=== PATIENT | female | born 1950 | race Caucasian/White ===

== ENCOUNTER 2020-11-02 13:22 | Emergency (ER) | payer MEDICARE, BC, SELFPAY ==
--- NOTE | ~2020-11-02 | XR_ITS ---
EXAMINATION: XR hip LT min 3V w AP pelvis EXAM DATE: 11/02/2020 13:39 INDICATION: No known recent injury provided at this time. Pain of the left hip. TECHNIQUE: Left hip frontal, 'frog leg' projections for interpretation. Frontal projection pelvis. There is no prior study for comparison. FINDINGS: There is mild to moderate symmetric bilateral hip primary osteoarthritis. There are no acut e fractures or dislocations identified. There is no subcutaneous gas. The soft tissue is unremarkabl e. There are no radiopaque foreign bodies. IMPRESSION: No acute osseous findings. Reviewed, dictated and finalized at location A. IMPRESSION: No acute osseous findings.
[2020-11-02 13:27] VITALS: BP 132/64; PULSE 82; RESP 18; TEMP 36.5; O2SAT 97
[2020-11-02] MEDS: KETOROLAC 15 MG/ML VIAL (*BKC) IV PUSH (14:31)
[2020-11-02] MEDS: diazePAM INJ (*CRX) 10 MG/2 ML SYRINGE 5 MG IV PUSH (14:34)
--- NOTE | 2020-11-02 14:59 | ED.BACK ---
HPI - Back Pain/Injury General Chief Complaint: Back Pain/Injury Stated Complaint: Back pain and hip pain Time Seen by Provider: 11/02/20 13:57 History of Present Illness HPI Narrative: Patient is a 70-year-old male who presents the ER with left hip and back pain. Patient reports she got out of bed yesterday and started having discomfort in her left buttock and start radiating down the left leg. She has increased pain when she walks or stands. Occasionally feels shooting going from her foot up to her hip. No known trauma or injury. Patient did have back surgery in May of this year and has had no issues since then. Denies saddle anesthesia or urinary retention/incontinence. Has not tried any pain medication. Pain is worse with any type of movement. Related Data Allergies Allergy/AdvReac Type Severity Reaction Status Date / Time latex Allergy Unknown Verified 08/08/15 14:25 Review of Systems Review of Systems: All systems reviewed & are unremarkable except as noted in HPI and below Constitutional: Constitutional: Denies chills and Denies fever(s) Musculoskeletal: Musculoskeletal: Reports back pain, Reports arthralgias and Denies joint swelling Neurologic: Denies focal weakness and Denies numbness PMFSH Past Medical History Medical History (Updated 11/02/20 @ 15:49 by Law Cee MD) History of breast cancer Migraines Surgical History Surgical History (Updated 11/02/20 @ 15:02 by Law Cee MD) History of appendectomy History of back surgery History of cholecystectomy History of mastectomy Left with reconstruction Family History Family History (Updated 08/08/15 @ 14:26 by DOCTOR UNKNOWN) Other Family history of malignant neoplasm Malignant neoplasm of prostate Social History Social History Smoking status: Never smoker Alcohol intake: never Gender identity (if verbalized by the patient): Female Exam Narrative: Exam Narrative: GENERAL: Well-appearing, morbidly obese, and in no acute distress. HEAD: Normocephalic, atraumatic. CHEST: Clear to auscultation. No respiratory distress. HEART: Regular rate and rhythm. Normal peripheral pulses. Back: Significant tenderness over the SI/gluteal region of the left buttock. No midline tenderness. EXTREMITIES: Increased pain left lower extremity with straight leg raise at the hip. Trace edema bilaterally. No tenderness or pain in the right lower extremity. Upper extremities with normal range of motion and strength. SKIN: Warm, dry, no rash. NEURO: No focal deficits. Alert and oriented x3. PSYCH: Normal mood and affect. Course Course Emergency Course: Patient reports pain went from 01/31-09/30 after receiving Toradol and Valium. She can move her leg much better at this time. Discussed return precautions and treatment plan and patient verbalized understanding. Vital Signs Vital signs: Vital Signs Temperature 97.7 F 11/02/20 13:27 Pulse Rate 82 11/02/20 13:27 Respiratory Rate 18 11/02/20 13:27 Blood Pressure 132/64 11/02/20 13:27 Pulse Oximetry 97 11/02/20 13:27 Temperature 97.7 F 11/02/20 13:27 Pulse Rate 82 11/02/20 13:27 Respiratory Rate 18 11/02/20 13:27 Blood Pressure 132/64 11/02/20 13:27 Pulse Oximetry 97 11/02/20 13:27 MDM - Back Pain/Injury Imaging Data Radiologist's impression: ITS Impressions Hip/Pelvis X-Ray 11/02/20 13:48 IMPRESSION: No acute osseous findings. Discharge Plan Discharge Clinical Impression: Sciatica Patient Disposition: Home, Self-Care Condition: Stable Instructions: Sciatica (ED) Additional Instructions: Return to the ER if you have increased pain in your back, you develop lower extremity weakness/numbness/paralysis, you have numbness or tingling in your private parts, or you are unable to control your ability to urinate/stool. Prescriptions: New cyclobenzaprine 10 mg tablet 10 mg PO TID PRN (Reason: muscle s
[2020-11-02 16:39] VITALS: BP 136/70; PULSE 78; RESP 18; O2SAT 97
== END 2020-11-02 16:40 | disposition home or self-care (01) ==
PROVIDERS: Emergency Provider Emergency Medicine; PCP Family Medicine
DX: M54.32 Sciatica, left side (principal); Z85.3 Personal history of malignant neoplasm of breast; Z90.12 Acquired absence of left breast and nipple
CPT/HCPCS: 73502; 96374; 96375; 99284; J1885; J3360

== ENCOUNTER 2021-02-07 03:04 | Day surgery (SDC) | payer MEDICARE, BC, SELFPAY ==
[2021-02-05 12:02] VITALS: BMI 41.5
--- NOTE | 2021-02-06 12:25 | PM.HPGS ---
History of Present Illness History of Present Illness Consent: Risks, benefits, and alternatives have been discussed and questions answered. Patient agrees to proceed with procedure. Chief complaint: GERD Narrative: Joann Ladd is a 71 year old female With persistent chest burning. Eating does not seem to affect it. Review of Systems Review of Systems: All systems reviewed & are unremarkable except as noted in HPI and below PMFSH Past Medical History Medical History History of breast cancer Migraines Surgical History Surgical History History of appendectomy History of back surgery History of cholecystectomy History of mastectomy Left with reconstruction Family History Family History Other Family history of malignant neoplasm Malignant neoplasm of prostate Social History Social History Smoking status: Never smoker Alcohol intake: never Substance use: never Substance use type: does not use Living arrangements: with family Gender identity (if verbalized by the patient): Female Spiritual care concerns: No Meds Home Medications and Allergies Home Medications Medication Instructions Recorded Confirmed Type cyclobenzaprine 10 mg PO TID PRN #20 tablet 11/02/20 Rx naproxen 500 mg PO BID #14 tablet 11/02/20 Rx Allergies Allergy/AdvReac Type Severity Reaction Status Date / Time latex Allergy Intermediate Hives Verified 02/07/21 08:51 Exam Const: General: alert Orientation/consciousness: patient oriented x3 Resp: Auscultation: clear to auscultation bilaterally Cardio: Rhythm: regular rhythm GI: GI Palp: Yes Soft to palpation and No Tenderness to palpation present (GI) Neuro: General: patient oriented x3 Assessment and Plan Assessment and plan (1) GERD (gastroesophageal reflux disease): Code(s): K21.9 - Gastro-esophageal reflux disease without esophagitis Status: Acute Assessment and Plan: EGD with possible biopsy or dilatation or cautery.
[2021-02-07 08:52] VITALS: BP 154/76; PULSE 70; RESP 18; TEMP 36.6; O2SAT 98; BMI 39.9
--- NOTE | 2021-02-07 09:20 | WPDANESEPPF ---
Anes - Initial Pre Proc Eval Procedure: Operation Date: 02/07/21 09:45 Proposed Procedures p Esophagogastroduodenoscopy - Cristian Shelby MD Date/Time: 02/07/21 09:20 Surgeon: Cristian Shelby MD Pre Op Diagnosis: GERD Patient Data Age: 71 Gender: F Height: 1.57 m Weight: 99 kg Last Vital Signs Temp 97.8 F 02/07/21 08:52 Pulse 70 02/07/21 08:52 Resp 18 02/07/21 08:52 BP 154/76 H 02/07/21 08:52 Pulse Ox 98 02/07/21 08:52 Allergies Allergy/AdvReac Type Severity Reaction Status Date / Time latex Allergy Intermediate Hives Verified 02/07/21 08:51 Home Medications Medication Instructions Recorded Confirmed Type cyclobenzaprine 10 mg PO TID PRN #20 tablet 11/02/20 Rx naproxen 500 mg PO BID #14 tablet 11/02/20 Rx Patient hx anesthesia problems: none Family hx anesthesia problems: none PMFSH Past Medical History Medical History History of breast cancer Migraines Surgical History Surgical History History of appendectomy History of back surgery History of cholecystectomy History of mastectomy Left with reconstruction Family History Family History Other Family history of malignant neoplasm Malignant neoplasm of prostate Social History Social History Smoking status: Never smoker Alcohol intake: never Substance use: never Substance use type: does not use Living arrangements: with family Gender identity (if verbalized by the patient): Female Spiritual care concerns: No Anes - Eval Final PreProcedure Day of Procedure 02/07/21 09:20 Patient weight: morbidly obese Heart: regular rate and rhythm Lungs: clear to auscultation Airway: Mallampati scale Last oral intake: >/= 8 hours ASA classification: III Emergent: no Anesthetic plan: proceed Anesthesia type and monitoring: general GIVS and standard monitoring Informed Consent: The patient's anesthetic plan and its attendant risks and benefits were discussed with the patient/family/POA. Questions were solicited and answers provided to the satisfaction of the patient/family/POA.
[2021-02-07] MEDS: LACTATED RINGERS 1,000 ML 150 ML IV CONT (09:30)
[2021-02-07 09:52] VITALS: BP 105/47; PULSE 60; RESP 23; O2SAT 98
[2021-02-07 10:02] VITALS: BP 116/57; PULSE 60; RESP 20; O2SAT 99
[2021-02-07 10:12] VITALS: BP 109/79; PULSE 63; RESP 17; O2SAT 99
== END 2021-02-07 10:33 | disposition home or self-care (01) ==
PROVIDERS: PCP Family Medicine; Visit Provider Internal Medicine Gastroenterology
PROC: 0DJ08ZZ Inspection of Upper Intestinal Tract, Via Natural or Artificial Opening Endoscopic (ICD-10-PCS; CPT 43235; principal; 2021-02-07 09:45)
DX: K21.00 Gastro-esophageal reflux disease with esophagitis, without bleeding (principal); K29.70 Gastritis, unspecified, without bleeding; K22.70 Barrett's esophagus without dysplasia; Z85.3 Personal history of malignant neoplasm of breast; E66.01 Morbid (severe) obesity due to excess calories; Z68.39 Body mass index [BMI] 39.0-39.9, adult
CPT/HCPCS: 43239; 87081; 88305; J2704; J7120

== ENCOUNTER 2021-07-31 13:21 | Outpatient (CLI) | payer MEDICARE, BC, SELFPAY ==
--- NOTE | ~2021-07-31 | CT_ITS ---
EXAMINATION: CT abdomen pelvis w con EXAM DATE: 07/31/2021 14:19 INDICATION: Diverticulitis. Right upper quadrant and right lower quadrant abdominal pain. TECHNIQUE: Spiral CT of the abdomen and pelvis was performed following intravenous injection of 100 m L Omnipaque 350. Axial, coronal and sagittal images of the abdomen and pelvis were reviewed. The do se-length product (DLP) for this examination was 1231.05 mGy-cm. The exposure was tailored according to patient size (auto mA exposure control), and iterative reconstruction (ASIR) was used as addition al dose reduction technique. Comparison is made to prior examination from 05/05/2017. FINDINGS: The liver, spleen, adrenal glands and pancreas are unremarkable. There are cholecystectomy clips. Portal and splenic veins are patent. Punctate right inferior calyceal stone. Kidneys enhance symmetrically. There is no hydronephrosis. The uterus is unremarkable. The bladder is unremarka ble. There is no retroperitoneal or pelvic lymphadenopathy. Small umbilical fat-containing hernia. Small to moderate left inguinal fat-containing hernia. The appendix is not positively visualized. There is no pericecal inflammatory change to suggest appe ndicitis. There is moderate scattered colonic diverticulosis. There is no adjacent inflammatory barreto ge to suggest diverticulitis. The stomach and small bowel are unremarkable. There is expected amount of colonic stool. No free intraperitoneal gas. The heart is normal in size. There are no perica rdial or pleural effusions. The lung bases are unremarkable. Lumbar laminotomies and laminectomies. There are no osteoblastic or osteolytic lesions identified. IMPRESSION: 1. No acute intra-abdominal findings. 2. Moderate colonic diverticulosis. 3. Punctate right nephrolithiasis. Reviewed, dictated and finalized at location A. DEVELOPER
[2021-07-31 13:57] LABS: Estimated Glomerular Filt Rate > 60
== END 2021-07-31 13:22 | disposition home or self-care (01) ==
PROVIDERS: PCP Family Medicine; Visit Provider Physician Assistant
DX: K57.92 Diverticulitis of intestine, part unspecified, without perforation or abscess without bleeding (principal); N20.0 Calculus of kidney
CPT/HCPCS: 74177; Q9967

== ENCOUNTER 2021-08-06 09:47 | Outpatient (CLI) | payer MEDICARE, BC, SELFPAY ==
[2021-08-06 10:28] LABS: Basophils Absolute Auto 0.1 K/mm3 (0.0-0.1); Basophils Percent Auto 1.9 % (0.2-1.2); Eosinophils Absolute Auto 0.4 K/mm3 (0-0.3); Eosinophils Percent Auto 6.9 % (0-4.4); Hemoglobin 13.7 g/dL (12.0-15.0); Immature Granulocyte Absolute 0.01 K/mm3 (0.00-0.031); Immature Granulocyte Percent A 0.2 % (0-0.5); Immature Platelet Fraction Pct 29.3 % (0.9-11.2); Lymphocytes Absolute Auto 2.54 K/mm3 (0.9-3.2); Lymphocytes Percent Auto 47.3 % (18.3-44.2); Mean Corpuscular HGB Conc 33.4 g/dl (32-36); Mean Corpuscular Hemoglobin 32.3 pg (26-34); Mean Corpuscular Volume 96.7 fl (80-100); Mean Platelet Volume 14.9 fl (7.4-10.4); Monocytes Absolute Auto 0.6 K/mm3 (0.1-0.6); Monocytes Percent Auto 11.5 % (2.6-8.5); Neutrophils Absolute Auto 1.7 K/mm3 (1.3-6.7); Neutrophils Percent Auto 32.2 % (45.5-73.1); Platelet Count Result 210 k/mm3 (150-375); Red Blood Count 4.24 M/mm3 (4.2-5.4); Red Cell Distribution Width 15.8 % (11.5-14.5); White Blood Count 5.4 K/mm3 (4.5-10.0)
[2021-08-06 10:31] LABS: Add Urine Microscopic? YES; Appearance Urine Cloudy (Clear); Bilirubin Urine Negative (Negative); Blood Urine 1+ (Negative); Color Urine Yellow (Yellow); Glucose Urine UA Negative (Negative); Ketones Urine Negative (Negative); Leukocyte Esterase Ur 2+ LEU/UL (NEGATIVE); Mucus Urine Rare /lpf; Nitrate Urine Negative (Negative); Protein Urine Negative (Negative); Specific Grav Ur 1.015 (1.001-1.035); Squamous Epithelial Cell Urine Rare /hpf (Few); Urobilinogen Urine Negative mg/dL (<2.0); WBC Urine 21-30 /hpf (0-3)
[2021-08-06 10:37] LABS: Alanine Aminotransferase 59 U/L (4-35); Albumin Level 4.5 g/dL (3.5-5.1); Alkaline Phosphatase 102 U/L (38-126); Anion Gap 7 mmol/L (8-16); Aspartate Amino Transferase 75 U/L (14-36); Bilirubin,Total 0.5 mg/dL (0.2-1.3); Blood Urea Nitrogen 15 mg/dL (7-17); Calcium 9.6 mg/dL (8.4-10.2); Carbon Dioxide 26 mmol/L (22-30); Chloride 105 mmol/L (98-107); Estimated Glomerular Filt Rate > 60; Glucose 125 mg/dL (65-110); Potassium 4.3 mmol/L (3.4-5.0); Sodium 138 mmol/L (137-145)
[2021-08-06 11:10] LABS: Free T4 Free Thyroxine 1.32 ng/mL (0.78-2.19)
== END 2021-08-06 09:48 | disposition home or self-care (01) ==
LOC: ANHLAB 09:54
PROVIDERS: PCP Family Medicine; Visit Provider Family Medicine
DX: K57.92 Diverticulitis of intestine, part unspecified, without perforation or abscess without bleeding (principal); R61 Generalized hyperhidrosis
CPT/HCPCS: 36415; 80053; 81001; 84439; 84443; 85025; 85055

== ENCOUNTER 2021-10-09 16:34 | Outpatient (CLI) | payer MEDICARE, BC, SELFPAY ==
--- NOTE | ~2021-10-09 | MR_ITS ---
EXAMINATION: MR brain/brain stem wo con DATE: 10/09/2021 17:15 INDICATION: Headache, unspecified. TECHNIQUE: Magnetic resonance imaging (MRI) of the brain and brainstem was performed without intraven ous contrast. COMPARISON: None. FINDINGS: There are scattered areas of nonspecific increased T2-weighted signal intensity in the cere bral white matter, which is within normal limits for the patient's age. There is no intracranial hemo rrhage, acute infarction, or abnormal intracranial mass lesion. The ventricles are normal in size. Th ere is mild mucosal thickening in the paranasal sinuses. The orbits are normal. The mastoid air cells are normal. IMPRESSION: 1. Normal aging brain. Reviewed, dictated and finalized at location A. IMPRESSION: 1. Normal aging brain.
== END 2021-10-09 16:35 | disposition home or self-care (01) ==
PROVIDERS: PCP Family Medicine; Visit Provider Family Medicine
DX: R51.9 Headache, unspecified (principal)
CPT/HCPCS: 70551

== ENCOUNTER 2022-02-04 14:33 | Outpatient (CLI) | payer MEDICARE, BC, SELFPAY | END 2022-02-04 14:34 | disposition home or self-care (01) | PROVIDERS: PCP Family Medicine; Referring Provider Obstetrics & Gynecology Gynecology; Visit Provider Obstetrics & Gynecology Gynecology | DX: E55.9 Vitamin D deficiency, unspecified (principal) | CPT/HCPCS: 36415; 82306 ==

== ENCOUNTER 2022-02-24 13:45 | Emergency (ER) | payer MEDICARE, BC, SELFPAY ==
--- NOTE | ~2022-02-24 | XR_ITS ---
XR chest 2V 02/24/2022 15:09 Indication: Chest pain and shortness of breath. Cough. Procedure: 2 view chest Comparison: Comparison to multiple prior studies sequentially, with oldest reviewed study dated 10/10/2007. Findings: Heart size normal. No focal air space disease, pulmonary edema, pleural effusion or suspect ed pneumothorax. Surgical clips are present in the left axilla. Impression: 1: No acute cardiopulmonary disease. Reviewed, dictated and finalized at location A. Impression: 1: No acute cardiopulmonary disease.
--- NOTE | ~2022-02-24 | CT_ITS ---
EXAMINATION: CT diagnostic chest w con DATE: 02/24/2022 18:15 INDICATION: Chest pain, history of breast cancer TECHNIQUE: Computed tomography (CT) of the chest was performed with 100 mL Omnipaque-350 intravenous contrast. Automated exposure control and iterative reconstruction technique were employed. The dose-l ength product was 329.28 mGy-cm. COMPARISON: None. FINDINGS: CHEST: Thoracic aorta: Mild arch calcifications. Lung parenchyma and airways: Lungs and airways are clear. Thoracic inlet, axillae and chest wall: Left axillary surgical clips. Left breast implant. Left thyro idectomy. 1.2 cm hypodense right thyroid nodule which requires no additional workup. No soft tissue m ass or lymphadenopathy. Mediastinum: No mass or lymphadenopathy. Small hiatal hernia. Heart and pericardium: Mild cardiomegaly. Coronary artery calcifications: Absent. Pleura: No effusion or mass. Upper abdomen: No significant finding. Thoracic bones: No acute osseous finding in the chest. IMPRESSION: No acute thoracic process detected. Reviewed, dictated and finalized at location K.
[2022-02-24 13:48] VITALS: BP 144/99; PULSE 73; RESP 16; TEMP 36.6; O2SAT 99
--- NOTE | 2022-02-24 13:51 | ECG_ITS ---
Measurements Intervals [place] Rate: 69 P: 53 TN: 133 QRS: -5 QRSD: 91 T: 33 QT: 330 QTc: 356 Interpretive Statements SINUS RHYTHM MINIMAL VOLTAGE CRITERIA FOR LVH, CONSIDER NORMAL VARIANT NONSPECIFIC T-WAVE ABNORMALITY BORDERLINE ECG NO PREVIOUS ECG AVAILABLE FOR COMPARISON Electronically Signed On 02-24-2022 17:14:02 CDT by Lobo Walker M.D.
[2022-02-24 14:11] LABS: Basophils Absolute Auto 0.1 K/mm3 (0.0-0.1); Basophils Percent Auto 2.2 % (0.2-1.2); Eosinophils Absolute Auto 0.4 K/mm3 (0-0.3); Eosinophils Percent Auto 6.5 % (0-4.4); Hematocrit 40.1 % (37.0-47.0); Hemoglobin 12.9 g/dL (12.0-15.0); Immature Granulocyte Absolute 0.01 K/mm3 (0.00-0.031); Immature Granulocyte Percent A 0.2 % (0-0.5); Immature Platelet Fraction Pct 32.3 % (0.9-11.2); Lymphocytes Absolute Auto 2.16 K/mm3 (0.9-3.2); Lymphocytes Percent Auto 38.9 % (18.3-44.2); Mean Corpuscular HGB Conc 32.2 g/dl (32-36); Mean Corpuscular Hemoglobin 33.2 pg (26-34); Mean Corpuscular Volume 103.1 fl (80-100); Monocytes Absolute Auto 0.6 K/mm3 (0.1-0.6); Monocytes Percent Auto 10.1 % (2.6-8.5); Neutrophils Absolute Auto 2.3 K/mm3 (1.3-6.7); Neutrophils Percent Auto 42.1 % (45.5-73.1); Platelet Count Result 273 k/mm3 (150-375); Red Blood Count 3.89 M/mm3 (4.2-5.4); Red Cell Distribution Width 16.8 % (11.5-14.5); White Blood Count 5.6 K/mm3 (4.5-10.0)
[2022-02-24 14:18] LABS: INR 1.2; Partial Thromboplastin Time 31.3 SECONDS (22.3-36.8); Prothrombin Time 14.3 Seconds (11.1-14.7)
[2022-02-24 14:19] LABS: Alanine Aminotransferase 39 U/L (6-35); Albumin Level 4.5 g/dL (3.5-5.1); Alkaline Phosphatase 128 U/L (38-126); Anion Gap 13 mmol/L (8-16); Aspartate Amino Transferase 36 U/L (14-36); Bilirubin,Total 0.6 mg/dL (0.2-1.3); Blood Urea Nitrogen 17 mg/dL (7-17); Calcium 9.6 mg/dL (8.4-10.2); Carbon Dioxide 24 mmol/L (22-30); Chloride 105 mmol/L (98-107); Estimated CRCL calculation 64 ml/min; Estimated Glomerular Filt Rate > 60; Glucose 147 mg/dL (65-110); Lipase 77 U/L (23-300); Potassium 3.8 mmol/L (3.4-5.0); Sodium 142 mmol/L (137-145)
[2022-02-24 14:28] LABS: Troponin I < 0.012 ng/mL (0.000-0.034)
[2022-02-24 16:07] LABS: Appearance Urine Clear (Clear); Bilirubin Urine Negative (Negative); Blood Urine Negative (Negative); Color Urine Yellow (Yellow); Glucose Urine UA Negative (Negative); Ketones Urine Negative (Negative); Leukocyte Esterase Ur Trace LEU/UL (Negative); Nitrate Urine Negative (Negative); Protein Urine Negative (Negative); pH Urine 5.5 (5.0-9.0)
[2022-02-24 16:19] LABS: Mucus Urine Rare /lpf; RBC Urine 0-2 /hpf (0-2); Squamous Epithelial Cell Urine Rare /hpf (Few); WBC Urine 0-3 /hpf
[2022-02-24 16:20] LABS: Add Urine Microscopic? YES
--- NOTE | 2022-02-24 16:57 | ED.CHESTPAIN ---
HPI - Chest Pain General Chief Complaint: Chest Pain Stated Complaint: chest pain with chills since Wednesday - SOB Time Seen by Provider: 02/24/22 16:19 History of Present Illness HPI narrative: This is a 72-year-old female with past medical history of breast cancer and hypertension, who presents to the emergency department complaining of chest pain since Wednesday. She states the pain occurred gradually has been gradually worsening is associated with cough and aggravated by deep breathing. She states the pain is 7 out of 10, pressure-like and does not radiate. She denies loss of consciousness, palpitations, weakness/numbness in any extremity. She also complains of intermittent chills and subjective fevers. Related Data Home Medications Medication Instructions Recorded Confirmed clonidine HCl 0.1 mg tablet 0.1 mg PO BID 04/08/21 04/08/21 gabapentin 300 mg capsule 300 mg PO BID 04/08/21 04/08/21 letrozole 2.5 mg tablet 2.5 mg PO DAILY 04/08/21 04/08/21 rizatriptan 10 mg tablet (Maxalt) 10 mg PO ONCE 04/08/21 04/08/21 venlafaxine 50 mg tablet 50 mg PO DAILY 04/08/21 04/08/21 Allergies Allergy/AdvReac Type Severity Reaction Status Date / Time latex Allergy Intermediate Hives Verified 02/24/22 13:46 Review of Systems Review of Systems: CONSTITUTIONAL: fever, chills, or sweats. EYES: Denies visual changes, redness, or discharge. ENT: Denies rhinorrhea, congestion, sore throat, or otalgia. CARDIOVASCULAR: chest pain Denies, palpitations, or edema. RESPIRATORY: Denies cough or dyspnea. GASTROINTESTINAL: Denies abdominal pain, nausea, vomiting, or diarrhea. GENITOURINARY: Denies dysuria or hematuria. SKIN: Denies rash or itching. MUSCULOSKELETAL: Denies back pain, joint pain, or myalgia. NEUROLOGIC: Denies headache, numbness, dizziness, or weakness. PSYCHIATRIC: Denies anxiety or depression. [facility] Past Medical History Medical History History of breast cancer Migraines Surgical History Surgical History History of appendectomy History of back surgery History of cholecystectomy History of mastectomy Left with reconstruction Family History Family History Other Family history of malignant neoplasm Malignant neoplasm of prostate Social History Social History Smoking status: Never smoker Alcohol intake: never Substance use: never Substance use type: does not use Gender identity (if verbalized by the patient): Female Spiritual care concerns: No Exam Narrative: GENERAL: Well-developed, well-nourished, appears uncomfortable HEAD: Normocephalic, atraumatic. EYES: PERRLA and EOMI. ENT: Nares clear, no rhinorrhea or epistaxis. Mucous membranes moist. Oropharynx without tonsillar hypertrophy exudate or other lesions. NECK: Supple. No adenopathy or masses. No carotid bruits or JVD CHEST: Clear to auscultation. No respiratory distress. No wheezes rales or rhonchi, reproducible tenderness to palpation over midline anterior chest HEART: Regular rate and rhythm. No murmur heard. Normal peripheral pulses. ABDOMEN: Soft, nontender, nondistended, normal active bowel sounds. EXTREMITIES: Normal range of motion. No edema. SKIN: Warm, dry, no rash. NEURO: No focal deficits. Alert and oriented x3. PSYCH: Normal mood and affect. Course Course Emergency Course: 18:38 - Labs are nonconcerning for acute metabolic abnormality. CBC within normal limits and UA not concerning for UTI. CT chest not concerning for acute cardiopulmonary process or changes concerning for metastatic disease. HEART score 3. Reassessed patient. She states she feels improved. Suspect patient's symptoms are related to viral illness with costochondritis. Discussed medications for pain control and return precautions includ
[2022-02-24 17:53] VITALS: BP 163/86; PULSE 94; RESP 13; O2SAT 98
[2022-02-24 18:03] LABS: SARS-CoV-2 RNA PCR Negative
[2022-02-24 18:09] LABS: Troponin I < 0.012 ng/mL (0.000-0.034)
[2022-02-24] MEDS: MORPHINE SULFATE (*CRX) 4 MG/ML INJ IV PUSH (18:21)
[2022-02-24 19:30] VITALS: BP 144/81; PULSE 97; RESP 17; O2SAT 99
== END 2022-02-24 19:32 | disposition home or self-care (01) ==
PROVIDERS: Emergency Medicine; Emergency Provider Preventive Medicine Aerospace Medicine; PCP Family Medicine
DX: M94.0 Chondrocostal junction syndrome [Tietze] (principal); R07.89 Other chest pain; I10 Essential (primary) hypertension; Z85.3 Personal history of malignant neoplasm of breast; Z20.822 Contact with and (suspected) exposure to COVID-19
CPT/HCPCS: 36415; 71046; 71260; 80053; 81001; 83690; 84484; 85025; 85055; 85610; 85730; 93005; 96374; 96375; 99284; C9803; J0131; J2270; Q9967; U0003; U0005

== ENCOUNTER 2022-04-15 10:05 | Outpatient (RCR) | payer MEDICARE, BC, SELFPAY ==
--- NOTE | 2022-04-15 13:25 | PTOPEVAL1 ---
Assessment and note entered by Ingris Saucedo, PT Evaluation Information Assessment Status Evaluation Diagnosis lumbar pain Onset September 2021 Subjective Information history of back surgery about 1 year ago; had gradual increase in back pain, without any injury to back; had back MRI recently and dr told her she would need more surgery--have more bulging discs; had 3 injections in back, most recent about 3 weeks ago- they helped; continuing with pain management care; Reported Pain Level Pain Score Self Report Additional Pain Score Comments pain range 1-9/10; stabbing pain in back, needle sticking in back, into R leg- lateral and posterior thigh to above knee; increase pain with twisting back, in/out car; reported tolerances: walking 10-15 min; sitting 1 hour; with sleeping, pain awakens 2x/night; decrease pain with aleve, heat/ice; at home, doing light housework only, requires multiple rests with home tasks; Assessment PT Clinical Summary Benedict has the diagnosis of lumbar radiculitis, foraminal stenosis. Pain is into her R LE to above the knee. She reports decreased walking, sitting and sleeping tolerances, with self assessment Oswestry score of 66% limitation in activity level. Pain is increased with home activity and getting in/out of car. She has had pain injections, which have helped to decrease her pain. With the evaluation, she has increased pain with standing trunk motions, supine B hip IR and ER motions, with tightness of her hamstrings and decreased strength of her trunk and hips. She has poor standing posture, with trunk and hip rotation and curvature of her spine. With the 2 minute walking test, she ambulated 150' and required 2 standing rest breaks. Skilled PT services are indicated for modalities to decrease pain, therapeutic exercises on land and in the water, for buoyancy effects of the water, to allow ease of motion and education for home exercises and self management of pain. Plan of Care Interventions Aquatic Therapy,Gait Training,Manual Therapy, Mechanical Traction,Neuro Re-education,Patient/ Caregiver Education,Therapeutic Activities,
--- NOTE | 2022-04-27 09:42 | PCPTNOTE ---
Patient called & cancelled all of her scheduled appointment this date.
--- NOTE | 2022-06-02 11:26 | PCPTNOTE ---
PHYSICAL THERAPY DISCHARGE 06-02-22 Attending Provider: Gt Domingo MD Patient:Joann Ladd Date of :1950 Patient has not returned for any further treatments since the PT evaluation on 04/15/2022, for the diagnosis of low back pain. Therefore she will be discharged at this time. The goals were not assessed. Thank you for referring this patient to [facility].
== END 2022-06-02 14:54 | disposition home or self-care (01) ==
LOC: ANHPT 10:05
PROVIDERS: PCP Family Medicine
DX: M51.26 Other intervertebral disc displacement, lumbar region (principal); M48.061 Spinal stenosis, lumbar region without neurogenic claudication; M54.16 Radiculopathy, lumbar region
CPT/HCPCS: 97110; 97161

== ENCOUNTER 2023-01-13 01:39 | Day surgery (SDC) | payer MEDICARE, BC, SELFPAY ==
[2023-01-11 12:01] VITALS: BMI 42.5
--- NOTE | 2023-01-12 13:47 | WPDANESEPPF ---
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 Patient Data Age: 72 Gender: F Height: 1.57 m Weight: 105.5 kg Allergies Allergy/AdvReac Type Severity Reaction Status Date / Time latex Allergy Severe Hives Verified 01/13/23 13:02 wool Allergy Severe Hives Verified 01/13/23 13:02 Home Medications Medication Instructions Recorded Confirmed Type pantoprazole 40 mg tablet,delayed 40 mg PO QAM 3 months #90 tabs 03/10/21 01/11/23 Rx release acetaminophen 500 mg tablet 500 mg PO Q8H PRN fever or pain 02/24/22 01/11/23 Rx #60 tabs atorvastatin 10 mg tablet 10 mg PO DAILY 11/10/22 01/11/23 History diclofenac sodium 75 mg 75 mg PO BID 11/10/22 01/11/23 History tablet,delayed release lidocaine 5 % topical patch 1 patch topical DAILY PRN Pain 11/10/22 01/11/23 History oxycodone-acetaminophen 10 mg-325 1 tablet PO Q8H PRN Pain 11/10/22 01/11/23 History mg tablet rimegepant 75 mg disintegrating 75 mg PO ONCE PRN Migraine Headache 11/10/22 01/11/23 History tablet rivaroxaban 20 mg tablet 20 mg PO DAILY 11/10/22 01/11/23 History sumatriptan succinate 50 mg tablet See Rx Instructions PO .COMPLEX 11/10/22 01/11/23 History PRN Migraine Headache tizanidine 4 mg capsule 4 mg PO QHS PRN Insomnia 11/10/22 01/11/23 History calcium carbonate-vitamin D3 1 cap PO DAILY 01/11/23 01/11/23 History duloxetine 30 mg capsule,delayed 30 mg PO DAILY 01/11/23 01/11/23 History release ergocalciferol (vitamin D2) 1,250 50,000 unit PO [id number] 01/11/23 01/11/23 History mcg (50,000 unit) capsule ferrous sulfate 140 mg (45 mg 140 mg PO DAILY 01/11/23 01/11/23 History iron) tablet,extended release metoprolol tartrate 25 mg tablet 25 mg PO BID 01/11/23 01/11/23 History pregabalin 100 mg capsule 100 mg PO TID 01/11/23 01/11/23 History zolpidem 10 mg tablet 10 mg PO HS PRN Insomnia 01/11/23 01/11/23 History Patient hx anesthesia problems: none Family hx anesthesia problems: none Results Review: All pre-operative results and documents have been reviewed as part of the pre-operative evaluation. [facility] Past Medical History Medical History (Updated 01/12/23 @ 13:49 by Suraj Valladares DO) Atrial fibrillation History of breast cancer Hyperlipidemia Hypertension Migraines Surgical History Surgical History (Updated 01/12/23 @ 13:49 by Suraj Valladares DO) History of appendectomy History of back surgery History of cholecystectomy History of mastectomy Left with reconstruction History of tubal ligation Family History Family History Other Family history of malignant neoplasm Malignant neoplasm of prostate Social History Social History Smoking status: Never smoker Alcohol intake: current Substance use: current Substance use type: does not use Living arrangements: with family Gender identity (if verbalized by the patient): Female Spiritual care concerns: No Anes - Eval Final PreProcedure Day of Procedure 01/12/23 13:47 Patient weight: morbidly obese Heart: regular rate and rhythm Lungs: clear to auscultation Airway: Mallampati scale class II Neurological: alert and oriented Last oral intake: >/= 8 hours ASA classification: III Emergent: no Anesthetic plan: proceed Anesthesia type and monitoring: general GIVS and standard monitoring Results Review: All pre-operative results and documents have been reviewed as part of the pre-operative evaluation. Informed Consent: The patient's anesthetic plan and its attendant risks and benefits were discussed with the patient/family/POA. Questions were solicited and answers provided to the satisfaction of the patient
--- NOTE | 2023-01-12 14:25 | PM.HPGS ---
History of Present Illness History of Present Illness Consent: Risks, benefits, and alternatives have been discussed and questions answered. Patient agrees to proceed with procedure. Chief complaint: melena,Garrido?s Esophagus Narrative: Joann Ladd is a 72 year old female who had seen blood in her stools last month.? At that time she was taking an antibiotic which was a red pill and so at the time she thought that the red color in the toilet was from that pill.? She had not recognized that was probably blood.? She saw her primary care provider who did a stool Hemoccult which was positive.? 7 years ago she had colonoscopy with removal of 1 small tubular adenoma. Also she had blood work done that showed that her blood counts had dropped.? We do not have those at present but are requesting them from the laboratory who performed them. 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 She states that her? health otherwise is okay.? Her weight is stable.? She has lost about 7 lb but was trying to.? She does have Barretts esophagus and she states she received a letter from her insurance company that she is approved to have that endoscopic procedure through the next year.? She states that she only took pantoprazole for short while not knowing that she was supposed to stay on it but has restarted just recently.? She denies dysphagia.? She was not having a great deal of heartburn while off the medication. Review of Systems Review of Systems: All systems reviewed & are unremarkable except as noted in HPI and below PMFSH Past Medical History Medical History (Updated 01/12/23 @ 13:49 by Suraj Valladares DO) Atrial fibrillation History of breast cancer Hyperlipidemia Hypertension Migraines Surgical History Surgical History (Updated 01/12/23 @ 13:49 by Suraj Valladares DO) History of appendectomy History of back surgery History of cholecystectomy History of mastectomy Left with reconstruction History of tubal ligation Family History Family History Other Family history of malignant neoplasm Malignant neoplasm of prostate Social History Social History Smoking status: Never smoker Alcohol intake: current Substance use: current Substance use type: does not use Living arrangements: with family Gender identity (if verbalized by the patient): Female Spiritual care concerns: No Meds Home Medications and Allergies Home Medications Medication Instructions Recorded Confirmed Type pantoprazole 40 mg tablet,delayed 40 mg PO QAM 3 months #90 tabs 03/10/21 01/11/23 Rx release acetaminophen 500 mg tablet 500 mg PO Q8H PRN fever or pain 02/24/22 01/11/23 Rx #60 tabs atorvastatin 10 mg tablet 10 mg PO DAILY 11/10/22 01/11/23 History diclofenac sodium 75 mg 75 mg PO BID 11/10/22 01/11/23 History tablet,delayed release lidocaine 5 % topical patch 1 patch topical DAILY PRN Pain 11/10/22 01/11/23 History oxycodone-acetaminophen 10 mg-325 1 tablet PO Q8H PRN Pain 11/10/22 01/11/23 History mg tablet rimegepant 75 mg disintegrating 75 mg PO ONCE PRN Migraine Headache 11/10/22 01/11/23 History tablet rivaroxaban 20 mg tablet 20 mg PO DAILY 11/10/22 01/11/23 History sumatriptan succinate 50 mg tablet See Rx Instructions PO .COMPLEX 11/10/22 01/11/23 History PRN Migraine Headache tizanidine 4 mg capsule 4 mg PO QHS PRN Insomnia 11/10/22 01/11/23 History calcium carbonate-vitamin D3 1 cap PO DAILY 01/11/23 01/11/23 History duloxetine 30 mg capsule,delayed 30 mg PO DAILY 01/11/23 01/11/23 History release ergocalciferol (vitamin D2) 1,250 50,000 unit PO [id number] 01/11/23 01/11/23 History mcg (50,000 unit) capsule ferrous sulfate 140 mg (45 mg 140 mg PO DAILY 01/11/23 01/11/23 History iron) tablet,extended release metoprolol tartrate 25 mg t
[2023-01-13 13:06] VITALS: BP 129/57; PULSE 101; RESP 20; TEMP 36.7; O2SAT 98
[2023-01-13] MEDS: LACTATED RINGERS 1,000 ML 150 ML IV CONT (13:34)
--- NOTE | 2023-01-13 14:09 | SUR.OPER ---
EGD end 1407 COLONOSCOPY START 1413
[2023-01-13 14:26] VITALS: BP 134/43; PULSE 61; RESP 19; O2SAT 100
[2023-01-13 14:36] VITALS: BP 137/59; PULSE 64; RESP 19; O2SAT 100
[2023-01-13 14:46] VITALS: BP 126/61; PULSE 61; RESP 18; O2SAT 100
== END 2023-01-13 15:05 | disposition home or self-care (01) ==
PROVIDERS: PCP Family Medicine; Visit Provider Internal Medicine Gastroenterology
PROC: 0DJ08ZZ Inspection of Upper Intestinal Tract, Via Natural or Artificial Opening Endoscopic (ICD-10-PCS; CPT 43235; principal; 2023-01-13 14:15)
DX: Z12.11 Encounter for screening for malignant neoplasm of colon (principal); K64.8 Other hemorrhoids; K57.30 Diverticulosis of large intestine without perforation or abscess without bleeding; Z86.010 Personal history of colon polyps; K22.70 Barrett's esophagus without dysplasia; K21.9 Gastro-esophageal reflux disease without esophagitis; D64.9 Anemia, unspecified; I48.91 Unspecified atrial fibrillation; I10 Essential (primary) hypertension; E78.5 Hyperlipidemia, unspecified; Z85.3 Personal history of malignant neoplasm of breast; Z79.01 Long term (current) use of anticoagulants; E66.01 Morbid (severe) obesity due to excess calories; Z68.41 Body mass index [BMI] 40.0-44.9, adult
CPT/HCPCS: 43239; G0105; 88305; J2704; J7120

== ENCOUNTER 2023-11-16 15:50 | Emergency (ER) | payer MEDICARE, BC, SELFPAY ==
--- NOTE | ~2023-11-16 | CT_ITS ---
CT abdomen pelvis wo con Ordering provider: Patsy Bishop MD History: 73 years Female with . hematuria . Comparison: July 31, 2021 Technique: CT abdomen and pelvis without IV and without oral contrast. Automated exposure control and iterative reconstruction technique were employed. The dose-length product was 1181.48 mGy-cm. Findings: VISUALIZED LOWER CHEST: Small ground glass appearing nodule is seen in the right lower lobe measuring 8 mm. Minimal dependent atelectatic changes. Mild cardiomegaly. Left breast implant. UPPER ABDOMINAL ORGANS: Liver: Normal. Gallbladder: Status post cholecystectomy. Spleen: Normal. Benign calcifications. Stomach/duodenum: Normal. Pancreas: Normal. Adrenals: Normal. Kidneys: Normal. PELVIC ORGANS: The bladder shows thickened wall of the urinary bladder with surrounding fat stranding suggestive of cystitis. Infiltrative process should be considered. Uterus: Normal. Right ovarian cyst measuring 2.2 cm. BOWEL AND MESENTERY: Colon: No evidence of diverticulitis. Fecal material is loaded in the colon suggestive of constipatio n. Appendix is not well demonstrated. Small Bowel: Normal. No obstruction. Peritoneum/mesentery: No free air or free fluid. No mesenteric lymphadenopathy. RETROPERITONEUM: Mild atheromatous disease of the abdominal aorta. No retroperitoneal lymphadenopat hy. MUSCULOSKELETAL: Superficial soft tissues: Fat containing left inguinal hernia is noted. The superficial soft tissues are normal. Bones: Age appropriate degenerative changes of the spine. Bilateral hip osteoarthritic changes. Retro listhesis at the level of L3-L4. Postoperative changes in the lower lumbar area at the level of L4-L5 . Loss of volume of L1 most likely chronic. IMPRESSION: 1. Thickened wall of the urinary bladder with surrounding fat stranding suggestive of cystitis. Infi ltrative process cannot be excluded. Cystoscopy is advised. 2. Groundglass nodule in the right lung base measuring 8 mm. Follow-up CT scan at 3 to 6 months is a dvised. 3. Constipation. Reviewed, dictated and finalized at location A. IMPRESSION: 1. Thickened wall of the urinary bladder with surrounding fat stranding sugges tive of cystitis. Infiltrative process cannot be excluded. Cystoscopy is advise d. 2. Groundglass nodule in the right lung base measuring 8 mm. Follow-up CT scan at 3 to 6 months is advised. 3. Constipation.
[2023-11-16 15:53] VITALS: BP 147/57; PULSE 60; RESP 18; TEMP 37; O2SAT 100
[2023-11-16 16:18] LABS: Hematocrit 27.5 % (37.0-47.0); Hemoglobin 8.7 g/dL (12.0-15.0); Immature Platelet Fraction Pct 41.7 % (0.9-11.2); Mean Corpuscular HGB Conc 31.6 g/dl (32-36); Mean Corpuscular Hemoglobin 33.5 pg (26-34); Mean Corpuscular Volume 105.8 fl (80-100); Platelet Count Result 187 k/mm3 (150-375); Red Cell Distribution Width 18.6 % (11.5-14.5); White Blood Count 6.1 K/mm3 (4.5-10.0)
[2023-11-16 16:38] LABS: Total Cells Counted 100
[2023-11-16 16:39] LABS: Anisocytosis 1+; Eosinophils Absolute Manual 0.42 K/mm3 (0.02-0.50); Eosinophils Percent Manual 7 % (0-4); Large Platelets Present; Lymphocytes Absolute Manual 2.19 K/mm3 (1.1-4.5); Lymphocytes Percent Manual 36 % (18-44); Macrocytosis 1+ (NORMAL); Monocytes Absolute Manual 0.36 K/mm3 (0.1-0.90); Monocytes Percent Manual 6 % (3-9); Neutrophils Percent Manual 51 % (46-73); Platelet Estimate Adequate (Adequate)
[2023-11-16 16:40] LABS: Ovalocytes 1+; Schistocytes None Seen
[2023-11-16 17:10] LABS: Appearance Urine Cloudy (Clear); Bacteria Urine 2+ /hpf; Bilirubin Urine Negative (Negative); Blood Urine 3+ (Negative); Color Urine Dark Yellow (Yellow); Glucose Urine UA Negative (Negative); Ketones Urine Negative (Negative); Leukocyte Esterase Ur 2+ LEU/UL (Negative); Mucus Urine Present /lpf; Need Manual Microscopic Reviewed; Nitrate Urine Positive (Negative); Non Pathogenic Casts 0-2; Protein Urine 2+ mg/dL (Negative); RBC Urine 51-100 /hpf (0-2); Specific Grav Ur 1.006 (1.001-1.035); Squamous Epithelial Cell Urine None Seen /hpf (Few); WBC Urine 21-50 /hpf (0-3)
[2023-11-16 17:11] LABS: Add Urine Microscopic? YES
[2023-11-16 17:50] VITALS: BP 148/57; PULSE 57; RESP 14; O2SAT 100
--- NOTE | 2023-11-16 18:11 | ED.FEMALEGU ---
HPI - Female Genitourinary General Chief complaint: Urogenital-Female Stated complaint: hematuria, bladder bx 2 wks ago Time Seen by Provider: 11/16/23 17:32 History of Present Illness HPI Narrative: Patient is a 73 year old female with history of afib here with dysuria and hematuria x 1 day. Patient notes that she saw a urologist through [facility] about 2 weeks ago and had a bladder biopsy done at that time given ongoing hematuria for the last 3 months. Patient has been doing well until today. She notes she has had dysuria and hematuria since this morning along with right sided abdominal pain. Patient notes pain is severe, radiates throughout her right abdomen. She did attempt to call her urologist's office, was unable to speak with the urologist, the staff was unable to get ahold of her as well due to her being in the OR all afternoon. They recommended she come into the ER for evaluation. She denies fever or chills. She is s/p cholecystectomy and appendectomy. Related Data Home Medications Medication Instructions Recorded Confirmed atorvastatin 10 mg tablet 10 mg PO DAILY 11/10/22 01/11/23 diclofenac sodium 75 mg 75 mg PO BID 11/10/22 01/11/23 tablet,delayed release lidocaine 5 % topical patch 1 patch topical DAILY PRN Pain 11/10/22 01/11/23 oxycodone-acetaminophen 10 mg-325 1 tablet PO Q8H PRN Pain 11/10/22 01/11/23 mg tablet rimegepant 75 mg disintegrating 75 mg PO ONCE PRN Migraine Headache 11/10/22 01/11/23 tablet rivaroxaban 20 mg tablet 20 mg PO DAILY 11/10/22 01/11/23 sumatriptan succinate 50 mg tablet See Rx Instructions PO .COMPLEX 11/10/22 01/11/23 PRN Migraine Headache tizanidine 4 mg capsule 4 mg PO QHS PRN Insomnia 11/10/22 01/11/23 calcium carbonate-vitamin D3 1 cap PO DAILY 01/11/23 01/11/23 duloxetine 30 mg capsule,delayed 30 mg PO DAILY 01/11/23 01/11/23 release ergocalciferol (vitamin D2) 1,250 50,000 unit PO [id number] 01/11/23 01/11/23 mcg (50,000 unit) capsule ferrous sulfate 140 mg (45 mg 140 mg PO DAILY 01/11/23 01/11/23 iron) tablet,extended release metoprolol tartrate 25 mg tablet 25 mg PO BID 01/11/23 01/11/23 pregabalin 100 mg capsule 100 mg PO TID 01/11/23 01/11/23 zolpidem 10 mg tablet 10 mg PO HS PRN Insomnia 01/11/23 01/11/23 Allergies Allergy/AdvReac Type Severity Reaction Status Date / Time latex Allergy Severe Hives Verified 01/13/23 13:02 wool Allergy Severe Hives Verified 01/13/23 13:02 Review of Systems Review of Systems: All systems reviewed & are unremarkable except as noted in HPI and below PMFSH Past Medical History Medical History (Updated 11/16/23 @ 21:35 by Patsy Bishop MD) Atrial fibrillation History of breast cancer Hyperlipidemia Hypertension Migraines Surgical History Surgical History (Updated 01/12/23 @ 13:49 by Suraj Valladares DO) History of appendectomy History of back surgery History of cholecystectomy History of mastectomy Left with reconstruction History of tubal ligation Family History Family History Other Family history of malignant neoplasm Malignant neoplasm of prostate Social History Social History Smoking status: Never smoker Alcohol intake: current Substance use: current Substance use type: does not use Living arrangements: with family Gender identity (if verbalized by the patient): Female Spiritual care concerns: No Exam Narrative: GENERAL: Well-appearing, well-nourished, and in no acute distress. HEAD: Normocephalic, atraumatic. EYES: PERRLA and EOMI. ENT: Nares clear. Mucous membranes moist. NECK: Supple. CHEST: Clear to auscultation. No respiratory distress. HEART: Regular rate and rhythm. Normal peripheral pulses. ABDOMEN: Soft, diffusely tender in the right side of her abdomen without rebound or guarding, nondistended. EXTREMITIES: Normal range of motion. No edema.
[2023-11-16 18:21] LABS: Alanine Aminotransferase 24 U/L (6-35); Alkaline Phosphatase 122 U/L (38-126); Anion Gap 7 mmol/L (4-12); Aspartate Amino Transferase 40 U/L (14-36); Bilirubin,Total 0.6 mg/dL (0.2-1.3); Blood Urea Nitrogen 19 mg/dL (7-17); Carbon Dioxide 23 mmol/L (22-30); Chloride 106 mmol/L (98-107); Estimated CRCL calculation 55 ml/min; Estimated Glomerular Filt Rate > 60; Glucose 122 mg/dL (65-110); Lipase 22 U/L (23-300); Potassium 3.9 mmol/L (3.4-5.0); Sodium 136 mmol/L (137-145)
[2023-11-16] MEDS: MORPHINE SULFATE (*CRX) 4 MG/ML INJ IV PUSH (20:25)
[2023-11-16] MEDS: ONDANSETRON INJ 4 MG/2 ML VIAL IV PUSH (20:25)
[2023-11-16 20:46] VITALS: BP 111/59; PULSE 58; RESP 15; O2SAT 98
[2023-11-16 21:47] VITALS: BP 104/62; PULSE 61; RESP 14; O2SAT 96
== END 2023-11-16 21:50 | disposition home or self-care (01) ==
PROVIDERS: Emergency Medicine; Emergency Provider Student in an Organized Health Care Education/Training Program; PCP Family Medicine
DX: N30.01 Acute cystitis with hematuria (principal); I48.91 Unspecified atrial fibrillation; I10 Essential (primary) hypertension; Z85.3 Personal history of malignant neoplasm of breast; E78.5 Hyperlipidemia, unspecified
CPT/HCPCS: 36415; 74176; 80053; 81001; 83690; 85025; 85055; 87077; 87086; 87088; 87186; 96365; 96375; 99284; J0696; J2270; J2405

== ENCOUNTER 2023-12-31 18:19 | Emergency (ER) | payer MEDICARE, BC, SELFPAY ==
--- NOTE | ~2023-12-31 | XR_ITS ---
XR chest 1V portable Ordering provider: Cristina Olivo MD History: 73 years Female with . cough, +COVID . Comparison: February 24, 2022 FINDINGS: MEDIASTINUM: The cardiac silhouette is not enlarged. LUNGS: No infiltrates, effusions or pneumothorax. OTHER: No free air under the diaphragm. Degenerative changes of the spine. IMPRESSION: No acute cardiopulmonary pathology. Reviewed, dictated and finalized at location A.
[2023-12-31 19:07] VITALS: BP 130/71; PULSE 57; RESP 18; TEMP 36.6; O2SAT 100
[2023-12-31] MEDS: AMOXICILLIN/CLAVULANATE K 875-125 MG TAB 1 TABLET PO (21:07)
--- NOTE | 2023-12-31 21:10 | ED.GENADULT ---
HPI - General Adult General Chief complaint: Unspecified Stated complaint: COVID+,hematuria, sinuses Time Seen by Provider: 12/31/23 19:42 History of Present Illness HPI narrative: Patient with history of bladder cancer and diagnosed with COVID 4 days ago, presents with greenish sinus discharge and concerned that she may be having a sinus infection. She also noticed some blood in her urine today. She is currently being treated for bladder cancer at [facility] Medications Medication Instructions Recorded Confirmed atorvastatin 10 mg tablet 10 mg PO DAILY 11/10/22 01/11/23 diclofenac sodium 75 mg 75 mg PO BID 11/10/22 01/11/23 tablet,delayed release lidocaine 5 % topical patch 1 patch topical DAILY PRN Pain 11/10/22 01/11/23 oxycodone-acetaminophen 10 mg-325 1 tablet PO Q8H PRN Pain 11/10/22 01/11/23 mg tablet rimegepant 75 mg disintegrating 75 mg PO ONCE PRN Migraine Headache 11/10/22 01/11/23 tablet rivaroxaban 20 mg tablet 20 mg PO DAILY 11/10/22 01/11/23 sumatriptan succinate 50 mg tablet See Rx Instructions PO .COMPLEX 11/10/22 01/11/23 PRN Migraine Headache tizanidine 4 mg capsule 4 mg PO QHS PRN Insomnia 11/10/22 01/11/23 calcium carbonate-vitamin D3 1 cap PO DAILY 01/11/23 01/11/23 duloxetine 30 mg capsule,delayed 30 mg PO DAILY 01/11/23 01/11/23 release ergocalciferol (vitamin D2) 1,250 50,000 unit PO [id number] 01/11/23 01/11/23 mcg (50,000 unit) capsule ferrous sulfate 140 mg (45 mg 140 mg PO DAILY 01/11/23 01/11/23 iron) tablet,extended release metoprolol tartrate 25 mg tablet 25 mg PO BID 01/11/23 01/11/23 pregabalin 100 mg capsule 100 mg PO TID 01/11/23 01/11/23 zolpidem 10 mg tablet 10 mg PO HS PRN Insomnia 01/11/23 01/11/23 Allergies Allergy/AdvReac Type Severity Reaction Status Date / Time latex Allergy Severe Hives Verified 12/31/23 21:14 wool Allergy Severe Hives Verified 12/31/23 21:14 Review of Systems Review of Systems: All systems reviewed & are unremarkable except as noted in HPI and below PMFSH Past Medical History Medical History (Updated 12/31/23 @ 21:35 by Cristina Olivo MD) Atrial fibrillation History of breast cancer Hyperlipidemia Hypertension Migraines Surgical History Surgical History (Updated 01/12/23 @ 13:49 by Suraj Valladares DO) History of appendectomy History of back surgery History of cholecystectomy History of mastectomy Left with reconstruction History of tubal ligation Family History Family History Other Family history of malignant neoplasm Malignant neoplasm of prostate Social History Social History Smoking status: Never smoker Alcohol intake: current Substance use: current Substance use type: does not use Living arrangements: with family Gender identity (if verbalized by the patient): Female Spiritual care concerns: No Exam Narrative: EXAMINATION OF ORGAN SYSTEMS/BODY AREAS: Constitutional: Vital signs per nursing GENERAL:[No acute distress, non-toxic appearing.] HEAD: Normal with no signs of head trauma. EYES: EOMI, conjunctiva normal ENT: tenderness to palpation of sinuses LUNGS: Nonlabored breathing. HEART: [Regular rate and rhythm] ABD: [Soft], [nontender to palpation] EXT: Normal range of motion SKIN: [No rashes or lesions.] NEURO: [Alert and oriented x 3. No gross focal sensory or strength deficits.] PSYCH: Normal affect Course Vital Signs Vital signs: Vital Signs Temperature 97.8 F 12/31/23 19:07 Pulse Rate 57 L 12/31/23 19:07 Respiratory Rate 18 12/31/23 19:07 Blood Pressure 130/71 12/31/23 19:07 Pulse Oximetry 100 12/31/23 19:07 Oxygen Delivery Room Air 12/31/23 19:07 Temperature 97.8 F 12/31/23 19:07 Pulse Rate 60 12/31/23 21:18 Respiratory Rate 18 12/31/23 21:18 Blood Pressure 127/62 12/31/23 21:18 Pulse Oximetr
[2023-12-31 21:11] VITALS: RESP 18; O2SAT 100
[2023-12-31 21:17] LABS: Bacteria Urine Rare /hpf; Non Pathogenic Casts 0-2; RBC Urine >100 /hpf (0-2); Squamous Epithelial Cell Urine Moderate /hpf (Few)
[2023-12-31 21:18] VITALS: BP 127/62; PULSE 60; RESP 18; O2SAT 100
[2023-12-31 21:19] LABS: Add Urine Microscopic? YES; Appearance Urine Cloudy (Clear); Bilirubin Urine Negative (Negative); Blood Urine 3+ (Negative); Glucose Urine UA Negative (Negative); Ketones Urine Negative (Negative); Leukocyte Esterase Ur 1+ LEU/UL (Negative); Nitrate Urine Negative (Negative); Protein Urine 2+ mg/dL (Negative); Specific Grav Ur 1.018 (1.001-1.035); pH Urine 5.5 (5.0-9.0)
[2023-12-31 21:20] LABS: Color Urine Light Red (Yellow)
== END 2023-12-31 21:55 | disposition home or self-care (01) ==
PROVIDERS: Emergency Provider Emergency Medicine; PCP Family Medicine
DX: U07.1 COVID-19 (principal); R31.9 Hematuria, unspecified; J01.90 Acute sinusitis, unspecified; C67.9 Malignant neoplasm of bladder, unspecified; I48.91 Unspecified atrial fibrillation; I10 Essential (primary) hypertension; E78.5 Hyperlipidemia, unspecified; Z85.3 Personal history of malignant neoplasm of breast; Z90.49 Acquired absence of other specified parts of digestive tract; Z90.12 Acquired absence of left breast and nipple; Z79.01 Long term (current) use of anticoagulants; Z79.899 Other long term (current) drug therapy
CPT/HCPCS: 71045; 81001; 87086; 99283; A9270